=== PATIENT | female | born 1975 | race Asian ===

== ENCOUNTER → 2021-11-18 | Outpatient (CLI) | payer BC ==
[2021-11-18 16:10] LABS: BASOPHILS % 0.8 % (0.0-2.0); EOSINOPHILS % 0.7 % (0.0-5.0); HEMATOCRIT. 35.9 % (36.0-48.0); HEMOGLOBIN. 12.2 g/dL (12.0-16.0); LYMPHOCYTES % 55.5 % (20.0-50.0); MEAN CORPUSCULAR HEMOGLOBIN 30.8 pg (28.0-32.0); MEAN CORPUSCULAR VOLUME 90.3 fL (81.0-99.0); MONOCYTES % 6.7 % (2.0-8.0); NEUTROPHILS % 36.3 % (40.0-76.0); PLATELET 171 x1000/uL (130-400); RED BLOOD CELL COUNT 3.98 mill/uL (4.2-5.4); RED CELL DISTRIBUTION WIDTH 12.6 % (11.6-14.6)
[2021-11-18 16:27] LABS: CLARITY URINE CLEAR (CLEAR); COLOR URINE YELLOW (YELLOW); KETONES URINE NEGATIVE (NEGATIVE); LEUKOCYTE ESTERASE URINE NEGATIVE (NEGATIVE); NITRITE URINE NEGATIVE (NEGATIVE); OCCULT BLOOD URINE 1+ (NEGATIVE); PROTEIN URINE NEGATIVE (NEGATIVE); SPECIFIC GRAVITY URINE 1.016 (1.005-1.030); UROBILINOGEN URINE 0.2 E.U./dL (0.2-1.0)
[2021-11-18 16:30] LABS: CHLORIDE 109 mEq/L (98-107)
[2021-11-18 16:37] LABS: LDL CHOLESTEROL 91 mg/dL (5-100)
[2021-11-18 16:38] LABS: HDL CHOLESTEROL 71 mg/dL (40-59); TOTAL IRON BINDING CAPACITY 342 ug/dL (250-450)
[2021-11-18 16:40] LABS: T4 FREE 0.98 ng/dL (0.76-1.46)
[2021-11-18 17:00] LABS: FERRITIN 13 ng/mL (10-291)
[2021-11-18 17:02] LABS: VITAMIN B12 SERUM 271 pg/mL (211-911)
[2021-11-20 10:08] LABS: VITAMIN D 25-OH 10.9 ng/mL (30.0-100.0)
[2021-11-22 04:09] LABS: HAV IGM ANTIBODY Negative (Negative); HBSAG SCREEN Negative (Negative); HEPATITIS B CORE IGM AB Negative (Negative); HEPATITIS C AB <0.1 s/co ratio (0.0-0.9)
== END | disposition home or self-care (01) ==
LOC: LAB 15:02
PROVIDERS: ATTEND Internal Medicine Geriatric Medicine
DX: Z00.01 Encounter for general adult medical examination with abnormal findings (principal); Z13.0 Encounter for screening for diseases of the blood and blood-forming organs and certain disorders involving the immune mechanism; Z13.1 Encounter for screening for diabetes mellitus; Z13.220 Encounter for screening for lipoid disorders; N39.0 Urinary tract infection, site not specified; E05.20 Thyrotoxicosis with toxic multinodular goiter without thyrotoxic crisis or storm
CPT/HCPCS: 36415; 80053; 80061; 80074; 81003; 82306; 82607; 82728; 83036; 83540; 83550; 84436; 84439; 84443; 84479; 85025; 86592